=== PATIENT | male | born 1930 | race Caucasian/White ===

== ENCOUNTER 2017-07-22 10:16 | Emergency (ER) | payer OTHER, MEDICARE ==
--- NOTE | 2017-07-22 10:43 | EDPHY ---
H & P Time Seen by Provider: 07/22/17 10:27 HPI/ROS: CHIEF COMPLAINT: Bright red blood per rectum HISTORY OF PRESENT ILLNESS: Year old male with a history of diabetes, hypertension and atrial fibrillation, on Plavix, presents with bright red blood per rectum. 3 episodes of bright red blood per rectum in the past 2 days. Normal brown stools, with blood in the toilet water after BM. No prior history of similar symptoms. No nausea, vomiting or abdominal pain. REVIEW OF SYSTEMS: complete 10 point ROS negative except at noted in the HPI Past Medical/Surgical History: Atrial fibrillation Diabetes Hypertension Social History: Recently moved to [place] Smoking Status: Never smoked Physical Exam: General Appearance: Alert, pleasant Eyes: Pupils equal and round, no conjunctival pallor ENT, Mouth: Mucous membranes moist Neck: Normal inspection Respiratory: Lungs are clear to auscultation Cardiovascular: Irregularly irregular rate and rhythm Gastrointestinal: Abdomen is soft and nontender Rectal: Small external hemorrhoid without signs of recent bleeding, brown stool , enlarged prostate, no tenderness Neurological: A&O, nonfocal, normal gait Skin: Warm and dry Extremities: Normal inspection Psychiatric: Mood and affect normal Constitutional: Initial Vital Signs Temperature (C) 36.5 C 07/22/17 10:23 Heart Rate 63 07/22/17 10:23 Respiratory Rate 18 07/22/17 10:23 Blood Pressure 141/91 H 07/22/17 10:23 O2 Sat (%) 96 07/22/17 10:23 O2 Delivery Mode Room Air Allergies/Adverse Reactions: No Known Allergies Allergy (Unverified 07/22/17 10:19) Home Medications: Medication Instructions Recorded Aspirin 81mg (*) 07/22/17 Atorvastatin Calcium 07/22/17 Glipizide 07/22/17 Hydrochlorothiazide 07/22/17 Isosorbide Dinitrate 07/22/17 Losartan Potassium 07/22/17 Metoprolol Succinate 07/22/17 Plavix 07/22/17 Ranitidine HCl 07/22/17 Verapamil 07/22/17 hydrALAZINE 07/22/17 Medical Decision Making ED Course/Re-evaluation: This patient presents with bright red blood per rectum. Anoscopy performed by me; brown stool present, no evidence of internal hemorrhoid or other etiology for bleeding. Stool guaiac is positive for blood. Hematocrit is normal. I do not feel that this patient needs to be admitted for rectal bleeding. He was referred to Gastroenterology for further evaluation. Warning signs discussed. He will return for worsening bleeding, any concerns Differential Diagnosis: includes though not limited to hemorrhoidal bleeding, anal fissure, diverticular bleed, AVM, tumor, uper GI bleed. - Data Points Laboratory Results: 07/22/17 10:39 Stool Occult Bld Scrn POSITIVE H (NEGATIVE) Departure - Departure Disposition: Home, Routine, Self-Care Clinical Impression: Bright red blood per rectum Condition: Good Instructions: Rectal Bleeding (ED) Referrals: Wil Zimmerman MD [Medical Doctor] - As per Instructions (Call to make an appointment. ) PATRICIA WALLACE MD [Other] - 2-3 days, call for appt.
[2017-07-22 10:57] LABS: PLATELET COUNT 227 10^3/uL (150-400)
[2017-07-22 11:14] VITALS: BP 115/54
== END 2017-07-22 11:15 | disposition home or self-care (01) ==
DX: K62.5 Hemorrhage of anus and rectum (principal); I10 Essential (primary) hypertension; E11.9 Type 2 diabetes mellitus without complications; Z79.82 Long term (current) use of aspirin

== ENCOUNTER 2018-09-23 08:26 | Emergency (ER) | payer OTHER, MEDICARE | END 2018-09-23 10:52 | disposition home or self-care (01) ==

== ENCOUNTER 2018-09-23 20:38 | Emergency (ER) | payer OTHER, MEDICARE | END 2018-09-23 21:59 | disposition home or self-care (01) ==